=== PATIENT | female | born 1955 | race Caucasian/White ===

== ENCOUNTER 2023-06-28 12:14 | Outpatient (CLI) | payer MEDICARE ==
[2023-06-28 14:36] LABS: #Eosinphils 0.1 10x3/uL (0.0-0.5); #Monocytes 0.3 10x3/uL (0.0-1.1); #Neutrophils 2.8 10x3/uL (1.5-8.4); %Basophils 0.8 % (0.0-2.0); %Eosinophils 1.2 % (0.0-6.0); %Lymphocytes 34.5 % (18.0-47.0); %Monocytes 5.6 % (0.0-10.0); %Neutrophils 57.7 % (40.0-75.0); Hematocrit 38.3 % (34.9-44.5); Hemoglobin 12.3 g/dL (12.0-15.5); Mean Corpuscular HGB CONC 32.1 g/dL (32.0-36.0); Mean Corpuscular Volume 87.2 fl (81.6-98.3); Mean Platelet Volume 10.7 fl (7.4-10.4); Platelet Count 187 10x3/uL (150-450); RBC Distribution Width 13.4 % (11.5-14.5); Red Blood Cell (RBC) Count 4.39 10x6/uL (3.90-5.03); White Blood Cell (WBC) Count 4.8 10x3/uL (3.5-10.5)
[2023-06-28 15:42] LABS: Prothrombin Time 10.8 sec (9.5-12.1)
[2023-06-28 15:58] LABS: Anion Gap 14 mmol/L (10-20); BUN (Urea Nitrogen) 24 mg/dL (9.8-20.1); Calc. Creatinine Clearance 0 mL/min (70-130); Carbon Dioxide 25 mmol/L (23-31); Chloride 108 mmol/L (98-107); Estimated GFR 73; Glucose 78 mg/dL (80-115); Potassium 4.5 mmol/L (3.5-5.1); Sodium 142 mmol/L (136-145)
== END 2023-06-28 12:15 | disposition home or self-care (01) ==
LOC: LABBT 12:14
PROVIDERS: ATTEND Orthopaedic Surgery
DX: Z01.818 Encounter for other preprocedural examination (principal); M16.11 Unilateral primary osteoarthritis, right hip
CPT/HCPCS: 80048; 85025; 85610; 87081; 93005; 93010

== ENCOUNTER 2023-06-30 05:41 | Observation (INO) | payer MEDICARE ==
[2023-06-28 13:07] VITALS: BMI 20.8
[2023-06-30] MEDS ORDERED: fentaNYL PF 100 MCG/2 ML SYRINGE ONE (06:16)
[2023-06-30] MEDS ORDERED: Propofol 500 MG/50 ML VIAL ONE (06:17)
[2023-06-30] MEDS ORDERED: Midazolam HCl 2 mg/2 ml Vial ONE ×2 (06:17→06:57)
[2023-06-30] MEDS ORDERED: Sodium Chloride 0.9% 100 ML ONE ×2 (06:37→07:04)
[2023-06-30] MEDS ORDERED: Vancomycin 1 GM/200 ML (FROZEN) BAG ONE (06:37)
[2023-06-30] MEDS ORDERED: Tranexamic Acid 1,000 MG/10 ML VIAL ONE (06:37)
[2023-06-30] MEDS ORDERED: Lidocaine 1% PF 5 ML VIAL ONE (06:45)
[2023-06-30] MEDS ORDERED: ePHEDrine Sulfate 50 MG/10 ML VIAL ONE ×2 (06:45→09:11)
[2023-06-30] MEDS ORDERED: EPINEPHrine 1 MG/ML VIAL ONE (06:46)
[2023-06-30] MEDS ORDERED: Bupivacaine 0.25% HCL 30 ML VIAL ONE (06:47)
[2023-06-30] MEDS ORDERED: fentaNYL 50 mcg/mL 1 mL Vial ONE (06:57)
[2023-06-30] MEDS ORDERED: diphenhydrAMINE 25 MG CAP PO PRN (07:02)
[2023-06-30] MEDS ORDERED: fentaNYL 50 mcg/mL 1 mL Vial SLOW IVP PRN (07:02)
[2023-06-30] MEDS ORDERED: Acetaminophen 325 MG TAB PO PRN (07:02)
[2023-06-30] MEDS ORDERED: Ondansetron PF 4 MG/2 ML Vial IVP PRN (07:02)
[2023-06-30] MEDS ORDERED: Promethazine HCl 25 MG/ML VIAL IM PRN ×2 (07:02→08:52)
[2023-06-30] MEDS ORDERED: Zolpidem Tartrate 5 MG TAB PO PRN (07:02)
[2023-06-30] MEDS ORDERED: HYDROcodone/Acetaminophen 10/325 mg Tablet PO PRN ×2 (07:02)
[2023-06-30] MEDS ORDERED: CEFAZOLIN 2 GM VIAL ONE (07:04)
[2023-06-30] MEDS ORDERED: Bupivacaine PF 0.5% 30 ML VIAL ONE (07:23)
[2023-06-30] MEDS ORDERED: Ketorolac Tromethamine 30 MG/ML VIAL IVP PRN (08:52)
[2023-06-30] MEDS ORDERED: Ondansetron HCl/PF 4 MG/2 ML Vial IVP PRN (08:52)
[2023-06-30] MEDS ORDERED: HYDROmorphone 2 MG/ML VIAL SLOW IVP PRN (08:52)
[2023-06-30] MEDS: Aspirin 81 mg Enteric Coated Tablet PO SCH ×2 (11:01→20:10)
[2023-06-30] MEDS: Multivitamin W/ Minerals 1 TAB PO SCH (11:02)
[2023-06-30] MEDS: Ferrous Gluconate 324 MG TAB PO SCH ×2 (11:02→20:10)
[2023-06-30] MEDS: Senokot S 8.6-50 MG TAB PO SCH ×2 (11:03→20:10)
[2023-06-30] MEDS: Ketorolac Tromethamine 30 MG/ML VIAL IVP SCH ×2 (13:48→22:07)
[2023-06-30] MEDS: CEFAZOLIN 2 GM in Sodium Chloride 0.9% 100 ML IVPB SCH ×2 (13:48→22:06)
[2023-06-30] MEDS ORDERED: Pravastatin Sodium 20 MG TAB PO SCH (21:00)
[2023-06-30] MEDS ORDERED: Simvastatin 10 MG TAB PO SCH (21:00)
[2023-07-01 05:13] LABS: Hematocrit 36.5 % (36.0-47.0); Hemoglobin 12.1 g/dL (12.0-16.0); Mean Corpuscular HGB CONC 33.2 g/dL (32.0-36.0); Mean Corpuscular Hemoglobin 29.1 pg (27.0-31.0); Mean Corpuscular Volume 87.7 fl (78.0-98.0); Mean Platelet Volume 11.1 fL (7.4-10.4); Platelet Count 155 10x3/uL (130-400); RBC Distribution Width 13.7 % (11.5-14.5); Red Blood Cell (RBC) Count 4.16 mill/uL (4.20-5.40)
[2023-07-01] MEDS: Sodium Chloride 0.9% 1,000 ML IV SCH ×2 (05:31→08:55)
[2023-07-01] MEDS: Ketorolac Tromethamine 30 MG/ML VIAL IVP SCH (05:32)
[2023-07-01 07:56] VITALS: BP 99/64; TEMP 97.6
[2023-07-01] MEDS: Senokot S 8.6-50 MG TAB PO SCH (08:53)
[2023-07-01] MEDS: Aspirin 81 mg Enteric Coated Tablet PO SCH (08:53)
[2023-07-01] MEDS: Ferrous Gluconate 324 MG TAB PO SCH (08:55)
[2023-07-01] MEDS: Multivitamin W/ Minerals 1 TAB PO SCH (08:55)
== END 2023-07-01 10:50 | disposition home or self-care (01) ==
LOC: SDC 05:41 → SJJU 10:32 → SDC 10:58 → SJJU 10:58
PROVIDERS: ADMIT Orthopaedic Surgery; ATTEND Orthopaedic Surgery
PROC: 0SR90JZ Replacement of Right Hip Joint with Synthetic Substitute, Open Approach (ICD-10-PCS; principal; 2023-06-30)
DX: M16.11 Unilateral primary osteoarthritis, right hip (principal); Z90.49 Acquired absence of other specified parts of digestive tract; Z96.642 Presence of left artificial hip joint
CPT/HCPCS: 27130; 73502; 85027; 97110 ×2; 97116; 97530; 97535; C1776; J0171; J3010; J3370; 36415; J1885; J2250; J2405; J2704; J3490; S0020